=== PATIENT | female | born 1990 | race Caucasian/White ===

== ENCOUNTER 2024-02-12 15:12 | Emergency (ER) | payer BC, SELFPAY ==
[2024-02-12 15:19] VITALS: BP 116/65
[2024-02-12 16:42] VITALS: BMI 22.5
[2024-02-12] MEDS: RABAVERT RABIES VACC W-DILUENT 2.5 UNIT IM (17:24)
[2024-02-12] MEDS: HyperRAB 1380 UNIT IM (17:25)
--- NOTE | 2024-02-12 17:57 | ED.GENMED ---
History of Present Illness
General
Chief Complaint: Rabies
Source: patient
Exam Limitations: none
Time Seen by Provider: 02/12/24 16:05
Nursing documentation reviewed up to this point in time: agreed with
Travel History
Have you had any contact with someone who has COVID-19?: No
Do you have any symptoms of coronavirus? Fever > 100 degrees, chills, cough, shortness of breath, sore throat, loss of taste or smell, muscle aches, or headache?: No
History of Present Illness
History of Present Illness:
33-year female presents to the ER for rabies vaccine. Patient's dog was attacked by the [place]. The dog sustained a laceration to his face and patient had to clean and wash her dog. She herself has no injuries but was in contact with wounds on the
dog.
Review of Systems
Review of Systems
Allergies reviewed?: Yes
All Other Systems: ROS reviewed and negative except as documented in HPI and ROS
Constitutional: Reports no symptoms
Respiratory: Reports no symptoms
Cardiac: Reports no symptoms
Musculoskeletal: Reports no symptoms
Neurological: Reports no symptoms
Psychiatric: Reports no symptoms
Phy Exam
General Physical Exam
General Presentation: well appearing
General age: appears stated age
General Skin: warm and dry
General Habitus: normal
General Mental: alert
General Hydration: appears well hydrated
Neurological Exam
Neurological Exam: alert and oriented x3
Musculoskeletal Exam
Musculoskeletal Exam: full ROM
Skin Exam
Skin Exam: normal color and warm/dry
Psychiatric Exam
Psychiatric Exam: normal mood/affect
Course
Orders/Labs/Results
Orders:
Orders
02/12/24 16:51
Rabies Immune Globulin/Pf [HyperRAB] 1,380 unit IM NOW STA
02/12/24 17:00
Rabies Vaccine (Pcec)/Pf [Rabavert Rabies Vacc W-Diluent] 2.5 unit IM .ONCE ONE
Vital Signs
Initial and Last Documented VS:
Initial Vital Signs
Temp Pulse Resp BP Pulse Ox
98.4 F 77 18 116/65 97
02/12/24 15:19 02/12/24 15:19 02/12/24 15:19 02/12/24 15:19 02/12/24 15:19
Last Documented Vital Signs
Temp Pulse Resp BP Pulse Ox
98.4 F 77 18 116/65 97
02/12/24 15:19 02/12/24 15:19 02/12/24 15:19 02/12/24 15:19 02/12/24 15:19
MDM/Problems Addressed
Differential Diagnosis Includes:
not limited to possible rabies exposure
MDM/Problems Addressed:
Patient was given rabies vaccine and immunoglobulin as documented.
*Pulse Oximetry
Patient hypoxic: no
*Critical Care Note
Total Time (30-74mins, 75-104mins- exclusive of procedures): Not Applicable
ED Attending Note
-
Portions of this chart may have been created with voice recognition software.� Occasional wrong word or��sound alike� substitutions may have occurred due to the inherent limitations of voice recognition software.
Discharge Plan
Departure
Patient Disposition: Home (Routine Discharge)
Date of Disposition: 02/12/24
Time of Disposition: 17:57
Patient with high blood pressure during this ER visit?: No
Condition: Fair
Covid-19: Not Applicable
Discharge Problem:
rabies vaccine encounter
Prescriptions:
No Action
Vitamin
1 tab PO DAILY
acetaminophen 325 mg Tablet
650 mg PO Q4HPRN PRN (Reason: mild pain) Qty: 20 0RF
ibuprofen 600 mg Tablet
600 mg PO Q6HPRN PRN (Reason: moderate pain/cramps) Qty: 20 0RF
Referrals:
Samuel Rob, DO [Family Provider] -
Stand Alone Forms: Rabies Vaccine Post Exp Dosing
Activity Restrictions/Additional Instructions:
For following vaccines you may go to infusion center. Return if any worsening of symptoms.
Interventions
Interventions:
*Risk Screen - Suicide Last Done: 02/12/24 15:19
*General Assessment Last Done: 02/12/24 15:19
*Neglect/Abuse Screening Last Done: 02/12/24 15:19
*ED COVID-19 Vaccine History Last Done: 02/12/24 15:19
*Nursing Disposition Last Done: 02/12/24 18:28
Discharge Date and Time
Discharge Date/Time: 02/12/24 18:29
Print Language: HUNGARIAN
== END 2024-02-12 18:29 | disposition home or self-care (01) ==
LOC: EMR 15:12
PROVIDERS: EMERGENCY PHYSICIAN Emergency Medicine; FAMILY PHYSICIAN Family Medicine
DX: Z23 Encounter for immunization (principal); Z20.3 Contact with and (suspected) exposure to rabies; Z29.14 Encounter for prophylactic rabies immune globulin; Z88.0 Allergy status to penicillin
CPT/HCPCS: 99284; 90471; 96372; 90375; 90675

== ENCOUNTER 2024-02-20 14:33 | Outpatient (RCR) | payer BC, SELFPAY ==
[2024-02-15 13:51] VITALS: BP 113/52
[2024-02-15] MEDS: RABAVERT RABIES VACC W-DILUENT 2.5 UNIT IM (14:02)
[2024-02-20] MEDS: RABAVERT RABIES VACC W-DILUENT 2.5 UNIT IM (15:12)
[2024-02-20 15:15] VITALS: BP 98/60
== END 2024-02-21 09:26 | disposition home or self-care (01) ==
LOC: OID 14:33
PROVIDERS: ATTENDING PHYSICIAN Emergency Medicine; FAMILY PHYSICIAN Family Medicine
DX: Z20.3 Contact with and (suspected) exposure to rabies (principal); Z23 Encounter for immunization
CPT/HCPCS: 90471; 90675

== ENCOUNTER 2024-02-26 15:11 | Outpatient (RCR) | payer BC, SELFPAY ==
[2024-02-26 15:23] VITALS: BP 107/62
[2024-02-26] MEDS: RABAVERT RABIES VACC W-DILUENT 2.5 UNIT IM (15:31)
== END 2024-02-27 08:29 | disposition home or self-care (01) ==
LOC: OID 15:11
PROVIDERS: ATTENDING PHYSICIAN Emergency Medicine; FAMILY PHYSICIAN Family Medicine
DX: Z20.3 Contact with and (suspected) exposure to rabies (principal); Z23 Encounter for immunization
CPT/HCPCS: 90471; 90675

== ENCOUNTER 2025-03-22 11:03 | Emergency (ER) | payer BC, SELFPAY ==
[2025-03-22 11:05] VITALS: BP 114/79
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
[2025-03-22] MEDS: TYLENOL 1000 MG PO (12:48)
== END 2025-03-22 14:23 | disposition home or self-care (01) ==
LOC: EMR 11:03
PROVIDERS: EMERGENCY PHYSICIAN Emergency Medicine; FAMILY PHYSICIAN Family Medicine
DX: S00.81XA Abrasion of other part of head, initial encounter (principal); S80.12XA Contusion of left lower leg, initial encounter; S80.11XA Contusion of right lower leg, initial encounter; V86.55XA Driver of 3- or 4- wheeled all-terrain vehicle (ATV) injured in nontraffic accident, initial encounter
CPT/HCPCS: 99285; 70450; 70486

== ENCOUNTER → 2025-09-23 09:03 | Outpatient (REF) | payer BC, SELFPAY | LOC: WDC 09:03 | PROVIDERS: ATTENDING PHYSICIAN Nurse Practitioner Adult Health; FAMILY PHYSICIAN Physician Assistant Medical | DX: N64.4 Mastodynia (principal) | CPT/HCPCS: 76642; 77062; 77066 ==